=== PATIENT | female | born 1950 | race Caucasian/White ===

== ENCOUNTER 2016-12-15 08:30 | Outpatient (CLI) | payer MEDICARE, BC | END 2016-12-15 08:31 | disposition home or self-care (01) | DX: E78.2 Mixed hyperlipidemia (principal); Z79.899 Other long term (current) drug therapy; E55.9 Vitamin D deficiency, unspecified ==

== ENCOUNTER 2017-01-20 13:08 | Outpatient (CLI) | payer MEDICARE, BC ==
--- NOTE | 2017-01-22 13:57 | DEXA Report ---
DEXA SCAN: 01/20/2017 CLINICAL HISTORY: Postmenopausal. TECHNIQUE: Dual energy x-ray absorptiometry (DXA) was performed on a Numari system. Regions measured are the AP spine, femoral neck, and, if needed, forearm. COMPARISON: None. In accordance with the International Society for Clinical Densitometry (ISCD) guidelines, data from previous exams may be reanalyzed using current recommendations and techniques. This is done to allow a more accurate basis for comparison with the current study. FINDINGS: The data for the lumbar spine is as follows: REGION BMD (g/cm/cm) T-SCORE Z-SCORE L1 1.111 -0.2 1.5 L2 1.121 -0.7 1.0 L3 1.216 0.1 1.8 L4 1.238 0.3 2.0 TOTAL 1.178 0.0 1.7 NOTE: All evaluable vertebrae are used for classification. The data for the hip is as follows: REGION BMD (g/cm/cm) T-SCORE Z-SCORE Neck 0.932 -0.8 0.8 TOTAL 0.967 -0.3 1.0 NOTE: The femoral neck or total proximal femur, whichever is lowest, is used for classification. * Denotes significant change at the 95% confidence level. Denotes dissimilar scan types or analysis methods. IMPRESSION: THE WHO CLASSIFICATION BASED ON THE INTERNATIONAL REFERENCE STANDARD IS WITHIN NORMAL LIMITS. THE FRACTURE RISK IS NOT INCREASED. RECOMMENDATION: Patients with diagnosis of osteoporosis or osteopenia should have regular bone mineral density assessment. For those eligible for Medicare, routine testing is allowed once every 2 years. Testing frequency can be increased for patients who have rapidly progressing disease or for those who are receiving medical therapy to restore bone mass. COMMENT: World Health Organization (WHO) definitions for osteoporosis and osteopenia: NORMAL BMD: T-score at -1.0 or higher, fracture risk is low. OSTEOPENIA BMD: T-score between -1.0 and -2.5, fracture risk is increased. OSTEOPOROSIS BMD: T-score at -2.5 or lower, fracture risk high. National Osteoporosis Foundation recommends: 1. Obtain adequate dietary calcium (at least 1200 mg per day) and vitamin D (400 -800 international units per day). 2. Participate, as appropriate, in regular weightbearing and muscle- strengthening exercise. 3. Avoid tobacco use and reduce alcohol and caffeine intake. 4. For more detailed information see the website at www.NOF.org. MTDD
== END 2017-01-20 13:09 | disposition home or self-care (01) ==
LOC: DI 13:08
PROVIDERS: ATTEND Internal Medicine
DX: Z13.820 Encounter for screening for osteoporosis (principal); Z78.0 Asymptomatic menopausal state
CPT/HCPCS: 77080

== ENCOUNTER 2017-01-20 13:09 | Outpatient (CLI) | payer MEDICARE, BC ==
--- NOTE | 2017-01-21 09:55 | Mammography Report ---
DIGITAL BILATERAL SCREENING MAMMOGRAM: 01/20/2017 CLINICAL HISTORY: This is a 66-year-old female in for routine screening mammogram. Patient has no f amily history of breast cancer. Patient had a left breast biopsy in 1974. TECHNIQUE: Routine CC and MLO projections were obtained of the breasts. FINDINGS: Heterogeneously dense breasts are noted bilaterally. No significant clusters of calcifica tion are seen. No significant masses are noted. No significant change is seen. IMPRESSION: BREASTS APPEAR RADIOGRAPHICALLY BENIGN. BIRADS 1 - NEGATIVE. RECOMMENDATIONS: Annual bilateral screening mammography. STANDARD QUALIFYING STATEMENTS 1. This examination was reviewed with the aid of Computer-Aided Detection (CAD). 2. A negative or benign imaging report should not delay biopsy if clinically suspicious findings are present. Consider surgical consultation if warranted. More than 5% of cancers are not identified by i maging. 3. Dense breasts may obscure an underlying neoplasm. JOB #: [id number] EXT JOB #:[id number]
== END 2017-01-20 13:10 | disposition home or self-care (01) ==
LOC: DI 13:09
PROVIDERS: ATTEND Internal Medicine
DX: Z12.31 Encounter for screening mammogram for malignant neoplasm of breast (principal)
CPT/HCPCS: 77067

== ENCOUNTER 2017-06-01 11:07 | Emergency (ER) | payer MEDICARE, BC ==
--- NOTE | 2017-06-01 12:25 | ED Physician Documentation ---
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 - Present Medications Home Medications: Ambulatory Orders Medication Instructions Recorded Confirmed Atorvastatin [Lipitor] 06/01/17 Cholecalciferol (Vitamin D3) 06/01/17 [Vitamin D3] Estrogens, Conjugated Cream 06/01/17 [Premarin Cream] HYDROcod/ACETAM 5/325 [Avenel 5/325] 1 tab PO Q6H PRN #15 tablet 06/01/17 Loratadine [Claritin] 10 mg PO 06/01/17 Psyllium Husk [Metamucil] 06/01/17 - Allergies Allergies/Adverse Reactions: Allergies Allergy/AdvReac Type Severity Reaction Status Date / Time erythromycin base Allergy Nausea Verified 06/01/17 11:17 - Social History Does the pt smoke?: No Smoking Status: Never smoker Does the pt drink ETOH?: Yes Does the pt have substance abuse?: No - Immunizations Immunizations are current?: Yes PD ED PE NORMAL - Vitals Vital signs reviewed: Yes - General General: Alert and oriented X 3, Well developed/nourished, Other (seems uncomfortable, guarding ROM of the wrist. ) - HEENT HEENT: Atraumatic - Neck Neck: Supple, no meningeal sign, No bony TTP, No adenopathy - Cardiac Cardiac: RRR, No murmur - Abdomen Abdomen: Soft, Non tender - Derm Derm: Normal color, Warm and dry - Extremities Extremities: Other (right wrist with tenderness and some swelling dorsally. Normal color and pulses at wrist/fingers. ) - Neuro Neuro: Alert and oriented X 3, No motor deficit, No sensory deficit, Normal speech Results - Vitals Vitals: Vital Signs - 24 hr 06/01/17 06/01/17 11:11 13:55 Temperature 36.7 C 36.9 C Heart Rate 75 77 Respiratory 16 16 Rate Blood Pressure 185/92 H 178/98 H O2 Saturation 100 99 Oxygen O2 Source Room air - Rads (name of study) wrist Radiology: Prelim report reviewed, EMP read contemporaneously (distal radius communited fracture with impaction and some displacement. Minimal angulation and it is volar. ) Procedures - Splint (location) right wrist Splint applied by: Tech Type of splint: Fiberglass, Sugar tong Other: Patient tolerated well, No complications, Neurovascular intact, Sling provided PD MEDICAL DECISION MAKING - ED course Complexity details: reviewed results, considered differential, d/w patient, d/w jury consultant (Dr. Hughes, who looked at xrays with me - to put in splint and refer to office, might need surgery but will discuss with patient in follow up. ) Departure - Departure Disposition: 01 Home, Self Care Clinical Impression: Fall from slip, trip, or stumble Qualifiers: Encounter type: initial encounter Qualified Code(s): W01.0XXA - Fall on same level from slipping, tripping and stumbling without subsequent striking against object, initial encounter Ying fracture of radius Qualifiers: Encounter type: initial encounter Fracture type: closed Laterality: right Qualified Code(s): S52.541A - Ying's fracture of right radius, initial encounter for closed fracture Condition: Stable Record reviewed to determine appropriate education?: Yes Instructions: ED Fx Wrist General Follow-Up: Prem Hughes MD [Provider Admit Priv/Credential] - Price Gupta MD [Primary Care Provider] - Prescriptions: HYDROcod/ACETAM 5/325 [Avenel 5/325] 1 tab PO Q6H PRN #15 tablet PRN Reason: Pain Comments: Keep the splint on and have the wrist elevated often. Sling for comfort. Use ice periodically today and tomorrow to help prevent and reduce swelling. Call today for an orthopedic appointment with Dr. Hughes for later this week after potential swelling is down. Tylenol or ibuprofen if needed for pain. Add hydrocodone if needed. Discharge Date/Time: 06/01/17 13:55
[2017-06-01] MEDS ORDERED: IBUPROFEN 600 MG TABLET PO STA (12:31)
[2017-06-01] MEDS ORDERED: HYDROcod/ACETAM 5/325 MG TABLET PO STA (12:31)
--- NOTE | 2017-06-01 12:31 | XRAY Preliminary Report ---
Exam: XR Forearm RT IMPRESSION: Comminuted, displaced distal radial fracture detailed on concurrent wrist radiography. No other fracture. [facility] SITE ID: [id number]
--- NOTE | 2017-06-01 12:33 | XRAY Report ---
EXAM: RIGHT FOREARM RADIOGRAPHY EXAM DATE: 06/01/2017 12:19 PM. CLINICAL HISTORY: Fall on hand, deformity and swollen. COMPARISON: Wrist radiography performed concurrently and dictated separately.. TECHNIQUE: 2 views. FINDINGS: Bones: Comminuted, displaced distal radial fracture detailed on concurrent wrist radiography. No othe r fracture. Joints: No dislocation. Soft Tissues: Distal soft tissue swelling. IMPRESSION: Comminuted, displaced distal radial fracture detailed on concurrent wrist radiography. No other fracture. [facility] Referring Provider Line: [phone] SITE ID: [id number]
--- NOTE | 2017-06-01 12:33 | XRAY Preliminary Report ---
Exam: XR Wrist 4 View RT IMPRESSION: Comminuted, displaced, intra-articular fracture of the distal radius. [facility] SITE ID: [id number]
--- NOTE | 2017-06-01 12:35 | XRAY Report ---
EXAM: RIGHT WRIST RADIOGRAPHY EXAM DATE: 06/01/2017 12:19 PM. CLINICAL HISTORY: Fall on right hand. COMPARISON: None. TECHNIQUE: 4 views. FINDINGS: Bones: Comminuted, intra-articular fracture of the distal radial metaphysis. There is mild impaction and approximately 5 mm anterior displacement. Minimal anterior angulation. No other acute fracture. Joints: Moderate degenerative change. No dislocation. Soft Tissues: Diffuse soft tissue swelling. IMPRESSION: Comminuted, displaced, intra-articular fracture of the distal radius. [facility] Referring Provider Line: [phone] SITE ID: [id number]
[2017-06-01] MEDS ORDERED: IBUPROFEN 600 MG TABLET PO ONE (12:40)
[2017-06-01] MEDS ORDERED: HYDROcod/ACETAM 5/325 MG TABLET ONE (12:40)
[2017-06-01 13:58] VITALS: BP 178/98
== END 2017-06-01 13:55 | disposition home or self-care (01) ==
LOC: ED 11:07
DX: S52.541A Smith's fracture of right radius, initial encounter for closed fracture (principal); W01.0XXA Fall on same level from slipping, tripping and stumbling without subsequent striking against object, initial encounter; E78.00 Pure hypercholesterolemia, unspecified
CPT/HCPCS: 29105; 73090; 73110; 99283; A9270

== ENCOUNTER 2018-01-07 08:00 | Outpatient (CLI) | payer MEDICARE, BC ==
[2018-01-07 18:07] LABS: BASOPHILS % (AUTO) 0.7 %; EOSINOPHILS # (AUTO) 0.2 10^3/uL (0.0-0.7); EOSINOPHILS % (AUTO) 4.4 %; HGB - HEMOGLOBIN 13.9 g/dL (12.0-16.0); LYMPHOCYTES # (AUTO) 1.3 10^3/uL (1.5-3.5); LYMPHOCYTES % (AUTO) 30.7 %; MEAN CORPUSCULAR HEMOGLOBIN 30.2 pg (27.0-31.0); MEAN CORPUSCULAR HGB CONC 32.9 g/dL (32.0-36.0); MEAN CORPUSCULAR VOLUME 91.7 fL (81.0-99.0); MEAN PLATELET VOLUME 8.7 fL (7.9-10.8); MONOCYTES # (AUTO) 0.4 10^3/uL (0.0-1.0); MONOCYTES % (AUTO) 9.3 %; NEUTROPHILS # (AUTO) 2.4 10^3/uL (1.5-6.6); NEUTROPHILS % (AUTO) 54.9 %; PLT - PLATELET COUNT 302 10^3/uL (130-450); RED CELL DISTRIBUTION WIDTH 12.8 % (12.0-15.0); WHITE BLOOD COUNT 4.3 x10^3/uL (4.8-10.8)
[2018-01-07 18:30] LABS: ALBUMIN 4.8 g/dL (3.2-5.5); ALBUMIN/GLOBULIN RATIO 1.7 (1.0-2.2); ALKALINE PHOSPHATASE 45 IU/L (42-121); ALT ALANINE AMINOTRANSFERASE 18 IU/L (10-60); AST ASPARTATE AMINOTRANSFERASE 27 IU/L (10-42); BILIRUBIN,TOTAL 0.7 mg/dL (0.2-1.0); BUN - BLOOD UREA NITROGEN 19 mg/dL (6-20); CALCIUM 9.2 mg/dL (8.5-10.3); CARBON DIOXIDE - CO2 29 mmol/L (21-32); CHLORIDE 100 mmol/L (101-111); CHOL/HDL RATIO 2.6 (<4.4); CHOLESTEROL 187 mg/dL; CREATININE 0.8 mg/dL (0.4-1.0); GFR - MDRD 72 (>89); GLUCOSE 85 mg/dL (70-100); HDL CHOLESTEROL 71 mg/dL; LDL CHOLESTEROL,CALCULATED 99 mg/dL; LDL/HDL RATIO 1.4 (<4.4); SODIUM 135 mmol/L (135-145); TOTAL PROTEIN 7.6 g/dL (6.7-8.2); VLDL CHOLESTEROL 17 mg/dL
== END 2018-01-07 08:01 ==
LOC: LAB.R 08:00
PROVIDERS: ATTEND Internal Medicine
DX: Z79.899 Other long term (current) drug therapy (principal); E55.9 Vitamin D deficiency, unspecified; D70.9 Neutropenia, unspecified; E78.5 Hyperlipidemia, unspecified
CPT/HCPCS: 80053; 80061; 82306; 83721; 84443; 85025

== ENCOUNTER 2019-04-18 08:11 | Outpatient (CLI) | payer MEDICARE, BC ==
[2019-04-18 09:11] LABS: BASOPHILS % (AUTO) 0.8 %; EOSINOPHILS # (AUTO) 0.2 10^3/uL (0.0-0.7); EOSINOPHILS % (AUTO) 6.4 %; HGB - HEMOGLOBIN 13.3 g/dL (12.0-16.0); LYMPHOCYTES # (AUTO) 1.1 10^3/uL (1.5-3.5); LYMPHOCYTES % (AUTO) 31.7 %; MEAN CORPUSCULAR HEMOGLOBIN 30.4 pg (27.0-31.0); MEAN CORPUSCULAR HGB CONC 31.9 g/dL (32.0-36.0); MEAN CORPUSCULAR VOLUME 95.2 fL (81.0-99.0); MEAN PLATELET VOLUME 10.2 fL (7.9-10.8); MONOCYTES # (AUTO) 0.5 10^3/uL (0.0-1.0); MONOCYTES % (AUTO) 12.8 %; NEUTROPHILS # (AUTO) 1.7 10^3/uL (1.5-6.6); PLT - PLATELET COUNT 311 10^3/uL (130-450); RED BLOOD COUNT 4.38 10^6/uL (4.20-5.40); RED CELL DISTRIBUTION WIDTH 11.9 % (12.0-15.0); WHITE BLOOD COUNT 3.6 x10^3/uL (4.8-10.8)
[2019-04-18 09:48] LABS: ALBUMIN 4.2 g/dL (3.2-5.5); ALBUMIN/GLOBULIN RATIO 1.3 (1.0-2.2); ALKALINE PHOSPHATASE 46 IU/L (42-121); ALT ALANINE AMINOTRANSFERASE 20 IU/L (10-60); AST ASPARTATE AMINOTRANSFERASE 22 IU/L (10-42); BILIRUBIN,TOTAL 0.9 mg/dL (0.2-1.0); BUN - BLOOD UREA NITROGEN 16 mg/dL (6-20); CALCIUM 9.5 mg/dL (8.5-10.3); CARBON DIOXIDE - CO2 29 mmol/L (21-32); CHLORIDE 101 mmol/L (101-111); CHOL/HDL RATIO 3.1 (<4.4); CHOLESTEROL 225 mg/dL; CREATININE 0.8 mg/dL (0.4-1.0); GFR - MDRD 71 (>89); GLUCOSE 94 mg/dL (70-100); HDL CHOLESTEROL 73 mg/dL; LDL CHOLESTEROL,CALCULATED 139 mg/dL; LDL/HDL RATIO 1.9 (<4.4); SODIUM 141 mmol/L (135-145); TOTAL PROTEIN 7.5 g/dL (6.7-8.2); VLDL CHOLESTEROL 13 mg/dL
== END 2019-04-18 08:12 | disposition home or self-care (01) ==
LOC: LAB 08:11
PROVIDERS: ATTEND Nurse Practitioner
DX: E55.9 Vitamin D deficiency, unspecified (principal); E78.5 Hyperlipidemia, unspecified; D70.9 Neutropenia, unspecified; Z79.899 Other long term (current) drug therapy
CPT/HCPCS: 36415; 80053; 80061; 82306; 83721; 84443; 85025

== ENCOUNTER 2020-04-24 08:14 | Outpatient (CLI) | payer MEDICARE, OTHER ==
[2020-04-24 08:34] LABS: BASOPHILS % (AUTO) 1.3 %; EOSINOPHILS # (AUTO) 0.2 10^3/uL (0.0-0.7); EOSINOPHILS % (AUTO) 6.6 %; HGB - HEMOGLOBIN 13.6 g/dL (12.0-16.0); LYMPHOCYTES # (AUTO) 1.1 10^3/uL (1.5-3.5); LYMPHOCYTES % (AUTO) 33.4 %; MEAN CORPUSCULAR HEMOGLOBIN 31.1 pg (27.0-31.0); MEAN CORPUSCULAR HGB CONC 32.6 g/dL (32.0-36.0); MEAN CORPUSCULAR VOLUME 95.4 fL (81.0-99.0); MEAN PLATELET VOLUME 9.4 fL (7.9-10.8); MONOCYTES # (AUTO) 0.4 10^3/uL (0.0-1.0); MONOCYTES % (AUTO) 13.2 %; NEUTROPHILS # (AUTO) 1.4 10^3/uL (1.5-6.6); NEUTROPHILS % (AUTO) 45.2 %; PLT - PLATELET COUNT 284 10^3/uL (130-450); RED BLOOD COUNT 4.37 10^6/uL (4.20-5.40); RED CELL DISTRIBUTION WIDTH 11.9 % (12.0-15.0); WHITE BLOOD COUNT 3.2 x10^3/uL (4.8-10.8)
[2020-04-24 08:54] LABS: ALBUMIN 4.3 g/dL (3.2-5.5); ALBUMIN/GLOBULIN RATIO 1.5 (1.0-2.2); ALKALINE PHOSPHATASE 44 IU/L (42-121); ALT ALANINE AMINOTRANSFERASE 18 IU/L (10-60); AST ASPARTATE AMINOTRANSFERASE 20 IU/L (10-42); BILIRUBIN,TOTAL 1.1 mg/dL (0.2-1.0); BUN - BLOOD UREA NITROGEN 16 mg/dL (6-20); CALCIUM 9.4 mg/dL (8.5-10.3); CARBON DIOXIDE - CO2 30 mmol/L (21-32); CHLORIDE 102 mmol/L (101-111); CHOL/HDL RATIO 2.8 (<4.4); CHOLESTEROL 223 mg/dL; CREATININE 0.8 mg/dL (0.4-1.0); GLUCOSE 97 mg/dL (70-100); HDL CHOLESTEROL 79 mg/dL; LDL CHOLESTEROL,CALCULATED 131 mg/dL; LDL/HDL RATIO 1.7 (<4.4); SODIUM 141 mmol/L (135-145); TOTAL PROTEIN 7.1 g/dL (6.7-8.2); VLDL CHOLESTEROL 13 mg/dL
== END 2020-04-24 08:15 | disposition home or self-care (01) ==
LOC: LAB 08:14
PROVIDERS: ATTEND Nurse Practitioner
DX: E78.5 Hyperlipidemia, unspecified (principal); R03.0 Elevated blood-pressure reading, without diagnosis of hypertension; E55.9 Vitamin D deficiency, unspecified
CPT/HCPCS: 36415; 80053; 80061; 82306; 83721; 84443; 85025

== ENCOUNTER 2020-06-01 14:46 | Outpatient (CLI) | payer MEDICARE, OTHER ==
--- NOTE | 2020-06-04 10:29 | Mammography Report ---
BILATERAL DIGITAL SCREENING MAMMOGRAM 3D/2D: 06/01/2020 CLINICAL: Routine screening. Comparison is made to exams dated: 01/20/2017 mammogram, 11/12/2015 mammogram - [facility], 06/29/2014 mammogram, 06/30/2013 mammogram, and 06/22/2012 mammogram - [facility]. The tissue of both breasts is heterogeneously dense. This may lower the sensitivi ty of mammography. There is a focal asymmetry in the left breast at 5 o'clock middle depth. No other significant masses, calcifications, or other findings are seen in either breast. IMPRESSION: INCOMPLETE: NEEDS ADDITIONAL IMAGING EVALUATION The focal asymmetry in the left breast is indeterminate. Additional views with possible ultrasound a re recommended. This exam was interpreted at Station ID: [id number]. NOTE: For mammograms, a report in lay terms will be sent to the patient. Approximately 15% of breast malignancies will not be visualized mammographically. In the management of a palpable breast mass, a negative mammogram must not discourage biopsy of a clinically suspicious lesion. Electronically Signed By: Aruna Ames M.D. lk/:06/01/2020 16:16:35 ACR BI-RADS Category 0: Incomplete 3340F PARENCHYMAL PATTERN: (D) - The breast(s) demonstrate(s) heterogeneously dense fibroglandular gaby martin. BI-RADS CATEGORY: (0) - 0 Mammo and US [id number] Immediate follow-up LATERALITY: (B)
== END 2020-06-01 14:47 | disposition home or self-care (01) ==
LOC: DI 14:46
PROVIDERS: ATTEND Nurse Practitioner
DX: Z12.31 Encounter for screening mammogram for malignant neoplasm of breast (principal); R92.8 Other abnormal and inconclusive findings on diagnostic imaging of breast
CPT/HCPCS: 77063; 77067

== ENCOUNTER 2020-07-03 10:28 | Outpatient (CLI) | payer MEDICARE, OTHER ==
--- NOTE | 2020-07-04 16:32 | Mammography Report ---
UNILATERAL LEFT DIGITAL DIAGNOSTIC MAMMOGRAM 3D/2D: 07/03/2020 CLINICAL: Patient returns today to evaluate a focal asymmetry in the left breast. Comparison is made to exams dated: 06/01/2020 mammogram, 01/20/2017 mammogram, 11/12/2015 mammogram - [facility], 06/29/2014 mammogram, 06/30/2013 mammogram, and 06/22/2012 [place] - [facility] [place] [facility] [place]. The tissue of left breast is heterogeneously dense. This may lower the sensitivity of mammography. There are two 5 mm round asymmetries in the left breast inferior lateral quadrant middle depth. No other significant masses or calcifications are seen in the breast. IMPRESSION: INCOMPLETE: NEEDS ADDITIONAL IMAGING EVALUATION The two round asymmetries in the left breast are likely cysts but remain indeterminate. An ultrasoun d is recommended. This was performed immediately following this exam. This exam was interpreted at Station ID: [id number]. NOTE: For mammograms, a report in lay terms will be sent to the patient. Approximately 15% of breast malignancies will not be visualized mammographically. In the management of a palpable breast mass, a negative mammogram must not discourage biopsy of a clinically suspicious lesion. Electronically Signed By: Gabriela aguiar/:07/03/2020 11:21:00 ACR BI-RADS Category 0: Incomplete 3340F PARENCHYMAL PATTERN: (D) - The breast(s) demonstrate(s) heterogeneously dense fibroglandular gaby martin. BI-RADS CATEGORY: (0) - 0 Ultrasound [id number] Immediate follow-up LATERALITY: (B)
--- NOTE | 2020-07-04 16:32 | Ultrasound Report ---
LIMITED ULTRASOUND OF LEFT BREAST: 07/03/2020 CLINICAL: Patient returns for additional imaging over a suspected cysts in the left breast. Comparison is made to exams dated: 07/03/2020 mammogram, 06/01/2020 mammogram, 01/20/2017 mammogram, mammogram - [facility], 06/29/2014 mammogram, [place] [facility] [place] flow and real-time ultrasound of the left breast 5 o'clock region were performed. Patel scale images of the real-time examination were reviewed. There are multiple benign oval simple cysts with smooth internal pritchett in the left breast inferior la teral quadrant anterior depth. These oval simple cysts display posterior acoustic enhancement. Thes e correlate with mammography findings. Color flow imaging demonstrates that there is no vascularity present. IMPRESSION: BENIGN There is no sonographic evidence of malignancy. The multiple oval simple cysts in the left breast are benign. Return to annual mammogram screening schedule is recommended. Findings and recommendations were conveyed to the patient at time of exam. This exam was interpreted at Station ID: [id number]. Electronically Signed By: Gabriela aguiar/:07/03/2020 11:39:49 Ultrasound BI-RADS: 2 Benign BI-RADS CATEGORY: (2) - 2 Mammogram [id number] return to screening LATERALITY: (B)
== END 2020-07-03 10:29 | disposition home or self-care (01) ==
LOC: DI 10:28
PROVIDERS: ATTEND Nurse Practitioner
DX: N60.12 Diffuse cystic mastopathy of left breast (principal)
CPT/HCPCS: 76642

== ENCOUNTER 2020-10-02 23:44 | Emergency (ER) | payer MEDICARE, OTHER ==
--- NOTE | 2020-10-03 00:21 | ED Physician Documentation ---
History of Present Illness - Stated complaint Stated Complaint: DISCOLORED VEINS - Chief complaint Chief Complaint: General - History obtained from History obtained from: Patient - History of Present Illness Timing: Today Pain level max: 0 Pain level now: 0 Improved by: nothing Worsened by: no exacerbating factors - Additonal information Additional information: patient had her first dose of (Moderna) coronavirus vaccination yesterday (left deltoid). This evening, she became concerned that the veins on both her wrists (ventral surfaces) were prominent. She has no other c/o. She is concerned this is related to the vaccination. 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 - Present Medications Home Medications: Ambulatory Orders Medication Instructions Recorded Confirmed Atorvastatin [Lipitor] 06/01/17 Cholecalciferol (Vitamin D3) 06/01/17 [Vitamin D3] Estrogens, Conjugated Cream 06/01/17 [Premarin Cream] HYDROcod/ACETAM 5/325 [Eugene 5/325] 1 tab PO Q6H PRN #15 tablet 06/01/17 Loratadine [Claritin] 10 mg PO 06/01/17 Psyllium Husk [Metamucil] 06/01/17 - Allergies Allergies/Adverse Reactions: Allergies Allergy/AdvReac Type Severity Reaction Status Date / Time erythromycin base Allergy Nausea Verified 06/01/17 11:17 - Social History Does the pt smoke?: No Smoking Status: Never smoker Does the pt drink ETOH?: Yes Does the pt have substance abuse?: No - Immunizations Immunizations are current?: Yes - POLST Patient has POLST: No PD ED PE NORMAL - Vitals Vital signs reviewed: Yes - General General: Alert and oriented X 3, No acute distress, Well developed/nourished - Derm Derm: Normal color, Warm and dry - Extremities Extremities: No edema, Other (the superficial veins of both wrists (ventral surfaces) are visible but without tenderness, erythema, palpable cords, or swelling. there is no echymosis.) Results - Vitals Vitals: Vital Signs - 24 hr 10/02/20 10/03/20 10/03/20 23:46 01:06 01:12 Temperature 36.5 C Heart Rate 78 68 Respiratory 18 16 15 Rate Blood Pressure 227/101 H 202/93 H O2 Saturation 99 98 Oxygen O2 Source Room air PD MEDICAL DECISION MAKING - ED course Complexity details: considered differential, d/w patient ED course: the veins of patient's wrist do not have any obvious abnormality. I explained to her that her perception of prominent veins in her wrists would not be related to the vaccination. It wasn't clear to me if she was comfortable with my conclusion, and thus I recommended she contact her PMD to see if they have had any experience with such a reaction the vaccine. Furthermore, I explained to her that her chief complaint and lack of findings on my exam do not suggest an emergent or concerning diagnosis and that no testing is indicated at this time. I did discuss with her that her blood pressure is particularly high; she says she gets "white coat" high blood pressure, but was agreeable to 0.2mg clonidine as a one-time dose which I recommended due to how high her blood pressures are at this time. I encouraged her to check her BP at home 2-3 times per day for the next several days so she will have readings to d/w her PMD in f/u. Departure - Departure Disposition: 01 Home, Self Care Clinical Impression: High blood pressure Qualifiers: Hypertension type: unspecified Qualified Code(s): I10 - Essential (primary) hypertension Condition: Good Instructions: ED Hypertension Poss Follow-Up: Lizet Bazan ARNP, [employer] [Primary Care Provider] - Comments: As we discussed, I do not think the appearance of swollen veins in your wrists is related in any way to your recent vaccination. I recommend you discuss this with your primary care provider before the next dose to see if they have had any experience with such a connection. Furthermore, no emergent testing nor treatment is indicated at this time. The only exception is your high blood pressure, for which you were given a dose of antihypertensive medication (clonidine). This is given as a one-time dose, but you should check and record your blood pressures 2-3 times per day for the next several days so you can discuss the results with your primary care provider; this will help determine if you have true hypertension (ongoing high blood pressure) as opposed to "white coat syndrome" in which the blood pressure temporarily increases in proportion to one's anxiety when being assessed by someone in the medical profession. Discharge Date/Time: 10/03/20 01:13
[2020-10-03] MEDS ORDERED: cloNIDine 0.1 MG TABLET PO STA (00:53)
[2020-10-03 01:07] VITALS: BP 202/93
== END 2020-10-03 01:13 | disposition home or self-care (01) ==
LOC: ED 23:44
DX: R03.0 Elevated blood-pressure reading, without diagnosis of hypertension (principal); Z71.1 Person with feared health complaint in whom no diagnosis is made
CPT/HCPCS: 99282; 99283; A9270

== ENCOUNTER 2020-10-13 19:12 | Emergency (ER) | payer MEDICARE, OTHER ==
--- NOTE | 2020-10-13 19:24 | ED Physician Documentation ---
History of Present Illness - Stated complaint Stated Complaint: HIGH BP - Chief complaint Chief Complaint: Cardiac - History obtained from History obtained from: Patient - History of Present Illness Timing: Today Pain level max: 0 Pain level now: 0 - Additonal information Additional information: patient recently T+R from this ED for concerns relating to possible side effect of COVID vaccination. high blood pressure noted at that time, but she attributes this to white coat syndrome. she was given a dose of clomidine before d/c. she followed up with her PMD and was started on 0.1 mg clonidine PO TID. she shows me her recorded blood pressures and they have generally been 120-180s SBP but today 200-210s SBP. no symptoms. her chief concern is inadequate blood pressure control. 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 - Present Medications Home Medications: Ambulatory Orders Medication Instructions Recorded Confirmed Atorvastatin [Lipitor] 10 mg PO DAILY 10/13/20 10/13/20 amLODIPine [Norvasc] 5 mg PO DAILY #30 10/13/20 cloNIDine [Catapres] 1 - 2 tab PO Q8HR PRN 10/13/20 10/13/20 - Allergies Allergies/Adverse Reactions: Allergies Allergy/AdvReac Type Severity Reaction Status Date / Time erythromycin base Allergy Nausea Verified 10/13/20 19:18 - Social History Does the pt smoke?: No Smoking Status: Never smoker Does the pt drink ETOH?: Yes Does the pt have substance abuse?: No - Immunizations Immunizations are current?: Yes - POLST Patient has POLST: No PD ED PE NORMAL - Vitals Vital signs reviewed: Yes - General General: Alert and oriented X 3, No acute distress, Well developed/nourished - HEENT HEENT: PERRL, EOMI - Neck Neck: Supple, no meningeal sign - Cardiac Cardiac: RRR, No murmur, No gallop, No rub - Respiratory Respiratory: No respiratory distress, Clear bilaterally - Abdomen Abdomen: Soft, Non tender - Neuro Neuro: Alert and oriented X 3, sports attorney 2-12 intact, No motor deficit, No sensory deficit, Normal speech Results - Vitals Vitals: Oxygen O2 Source Room air PD MEDICAL DECISION MAKING - ED course Complexity details: reviewed old records, re-evaluated patient, considered differential, d/w patient ED course: we discussed options for long-term antihypertensive, considering potential side effects. we agreed on amlodipine , although she can use an occasional dose of clonidine if her BP is high despite the amlodipine (although she needs to follow up with PMD, as a wiser option would be to increase dose of amlodipine) Departure - Departure Disposition: 01 Home, Self Care Clinical Impression: Hypertension Condition: Good Instructions: Amlodipine, ED Hypertension New Begin Tx Follow-Up: Bill Landa MD [Primary Care Provider] - Prescriptions: amLODIPine [Norvasc] 5 mg PO DAILY #30 Comments: I have prescribed amlodipine for your high blood pressure. You are to take this once per day. As we discussed, you can take doses of the clonidine as prescribed in addition to the amlodipine, but do so ONLY if your blood pressures remain high despite the amlodipine (three consecutive readings of 180 (or higher) systolic (upper number) and/or 110 diastolic (or higher) (lower number), with 20-30 minutes between BP readings). You need to follow up with your primary care physician; if your blood pressures are not controlled with the amlodipine, he can double the dosage. Discharge Date/Time: 10/13/20 20:17
[2020-10-13] MEDS ORDERED: amLODIPine 5 MG TABLET PO STA (19:50)
[2020-10-13 20:04] VITALS: BP 185/100
== END 2020-10-13 20:17 | disposition home or self-care (01) ==
LOC: ED 19:12
DX: I10 Essential (primary) hypertension (principal)
CPT/HCPCS: 99282; 99283; A9270

== ENCOUNTER 2021-02-05 07:45 | Outpatient (CLI) | payer MEDICARE, OTHER | END 2021-02-05 07:46 | disposition home or self-care (01) | LOC: DI 07:45 | PROVIDERS: ATTEND Internal Medicine Cardiovascular Disease | DX: I10 Essential (primary) hypertension (principal); Z82.49 Family history of ischemic heart disease and other diseases of the circulatory system | CPT/HCPCS: 93306 ==

== ENCOUNTER 2021-09-23 10:52 | Outpatient (CLI) | payer MEDICARE, OTHER ==
--- NOTE | 2021-09-24 08:52 | Mammography Report ---
BILATERAL DIGITAL SCREENING MAMMOGRAM 3D/2D: 09/23/2021 CLINICAL: Routine screening. Comparison is made to exams dated: 07/03/2020 ultrasound, 07/03/2020 mammogram, 06/01/2020 mammogram, a nd 01/20/2017 mammogram - [facility]. The tissue of both breasts is heterogeneously dense. This may lower the sensitivity of mammography. No significant masses, calcifications, or other findings are seen in either breast. There has been no significant interval change. IMPRESSION: NEGATIVE There is no mammographic evidence of malignancy. A 1 year screening mammogram is recommended. This exam was interpreted at Station ID: [id number]. NOTE: For mammograms, a report in lay terms will be sent to the patient. Approximately 15% of breast malignancies will not be visualized mammographically. In the management of a palpable breast mass, a negative mammogram must not discourage biopsy of a clinically suspicious lesion. Electronically Signed By: Chaim Walters M.D. ar/penrad:09/23/2021 12:12:02 ACR BI-RADS Category 1: Negative 3341F PARENCHYMAL PATTERN: (D) - The breast(s) demonstrate(s) heterogeneously dense fibroglandular gaby martin. BI-RADS CATEGORY: (1) - 1 RECOMMENDATION: (ANNUAL) - Recommend routine annual screening mammography. [id number] 1 year screening LATERALITY: (B)
== END 2021-09-23 10:53 | disposition home or self-care (01) ==
LOC: DI.N 10:52
DX: Z12.31 Encounter for screening mammogram for malignant neoplasm of breast (principal)

== ENCOUNTER 2023-02-06 08:06 | Outpatient (CLI) | payer MEDICARE, OTHER ==
--- NOTE | 2023-02-06 15:52 | DEXA Report ---
PROCEDURE: Dexa Spine and/or Hip INDICATIONS: POST MENOPAUSAL TECHNIQUE: Dual energy x-ray absorptiometry (DXA) was performed on a [employer] System. Regions measur ed are the AP Spine, femoral neck, and if needed forearm. COMPARISON: 01/20/2017 FINDINGS: Lumbar Spine: Bone Mineral Density 1.168 g/cm/cm,T score -0.1. There is interval 0.8% decrease in total lumbar spi ne bone mineral density. Left hip: Bone Mineral Density 0.967 g/cm/cm, T score -0.3. There is no significant interval changes in left hi p bone mineral density. Left femoral neck: Bone Mineral Density 0.916 g/cm/cm,T score -0.9. (T score greater or equal to -1.0: NORMAL) (T score from -1.1 to -2.4: OSTEOPENIA) (T score less than or equal to -2.5 to: OSTEOPOROSIS) Impression: By WHO criteria, this patient has normal bone density. Patients with diagnosis of osteoporosis or osteopenia should have regular bone mineral density assess ment. For those eligible for Medicare, routine testing is allowed once every 2 years. Testing frequ ency can be increased for patients who have rapidly progressing disease or for those who are receivin g medical therapy to restore bone mass. Reviewed by: Sandor Bustillo MD on 02/06/2023 3:50 PM PDT Approved by: Sandor Bustillo MD on 02/06/2023 3:50 PM PDT Station ID: [id number]
== END 2023-02-06 08:07 | disposition home or self-care (01) ==
LOC: DI 08:06
PROVIDERS: ATTEND Physician Assistant
DX: N95.8 Other specified menopausal and perimenopausal disorders (principal)

== ENCOUNTER 2023-06-10 08:00 | Outpatient (CLI) | payer MEDICARE, OTHER | END 2023-06-10 23:59 | disposition home or self-care (01) | LOC: LAB.N 08:00 | PROVIDERS: ATTEND Family Medicine | DX: U07.1 COVID-19 (principal) ==

== ENCOUNTER 2023-06-12 15:37 | Outpatient (CLI) | payer MEDICARE, OTHER ==
--- NOTE | 2023-06-12 17:11 | XRAY Report ---
PROCEDURE: Chest 2 View X-Ray INDICATIONS: BRONCHITIS, ACUTE TECHNIQUE: 2 views of the chest were acquired. COMPARISON: None. FINDINGS: Surgical changes and devices: None. Lungs and pleura: No pleural effusions or pneumothorax. Lungs are clear. Peribronchial cuffing. Mediastinum: Mediastinal contours appear normal. Heart size is normal. Bones and chest wall: No suspicious bony lesions. Overlying soft tissues appear unremarkable. IMPRESSION: Peribronchial cuffing, suggestive of infectious or inflammatory bronchitis. Reviewed by: Jasvir Forrester on 06/12/2023 5:10 PM PDT Approved by: Jasvir Forrester on 06/12/2023 5:10 PM PDT Station ID: [id number]
== END 2023-06-12 15:38 | disposition home or self-care (01) ==
LOC: DI 15:37
PROVIDERS: ATTEND Family Medicine
DX: J20.9 Acute bronchitis, unspecified (principal)

== ENCOUNTER 2024-02-22 16:17 | Outpatient (CLI) | payer MEDICARE, OTHER ==
--- NOTE | 2024-02-23 08:38 | XRAY Report ---
PROCEDURE: Knee 4+V LT INDICATIONS: LEFT KNEE PAIN TECHNIQUE: 4 views of the knee(s) were acquired. COMPARISON: None. FINDINGS: Bones: No fractures or dislocations. No suspicious bony lesions. Mild tricompartmental knee joint d egeneration. Osteopenia. Soft tissues: Small knee joint effusion. No suspicious soft tissue calcifications or masses. IMPRESSION: 1. No acute bony abnormality. 2. Mild degenerative joint disease. 3. Small knee joint effusion. 4. Osteopenia. Reviewed by: Lyly Colvin MD on 02/23/2024 8:37 AM PDT Approved by: Lyly Colvin MD on 02/23/2024 8:37 AM PDT Station ID: [id number]
== END 2024-02-22 16:18 | disposition home or self-care (01) ==
LOC: DI 16:17
PROVIDERS: ATTEND Physician Assistant Surgical
DX: M17.12 Unilateral primary osteoarthritis, left knee (principal); M25.462 Effusion, left knee; M85.88 Other specified disorders of bone density and structure, other site